=== PATIENT | female | born 1980 | race Caucasian/White ===

== ENCOUNTER 2019-11-29 07:29 | Outpatient (CLI) | payer SELFPAY ==
--- NOTE | 2019-11-29 07:15 | USCV_ITS ---
Lise Sharma Age: 39 Gender: F : 1980 Exam Date: 11/29/2019 07:53 Ordering Phys: Barney Rene Technologist: Krista Phelps Exam Location: [facility] – [place] Indication: PALPITATIONS BP: 118 / 57 HR: 72 Rhythm: Sinus Technical Quality: Adequate MEASUREMENTS (Male / Female) Normal Values 2D ECHO LV Diastolic Diameter PLAX 3.8 cm 4.2 - 5.9 / 3.9 - 5.3 cm LV Systolic Diameter PLAX 1.9 cm IVS Diastolic Thickness 1.3 cm 0.6 - 1.0 / 0.6 - 0.9 cm IVS Systolic Thickness 1.1 cm LVPW Diastolic Thickness 1.8 cm 0.6 - 1.0 / 0.6 - 0.9 cm LVPW Systolic Thickness 1.7 cm LVOT Diameter 2.0 cm LV Ejection Fraction 2D Teich 81.7 % LV Ejection Fraction MOD 2C 59.9 % LV Ejection Fraction 2C AL 60.3 % LA Diameter 3.9 cm LA Width 3.2 cm LA Height 4.0 cm RA Width 3.0 cm RA Height 3.6 cm Aorta at Sinotubular Diameter 2.3 cm M-MODE LV Diastolic Diameter MM 4.6 cm 4.2 - 5.9 / 3.9 - 5.3 cm LV Systolic Diameter MM 3.0 cm LV Ejection Fraction MM Teich 64.5 % IVS Diastolic Thickness MM 0.9 cm 0.6 - 1.0 / 0.6 - 0.9 cm IVS Systolic Thickness MM 1.0 cm LVPW Diastolic Thickness MM 1.0 cm 0.6 - 1.0 / 0.6 - 0.9 cm LVPW Systolic Thickness MM 1.7 cm Aortic Annulus Diameter 3.0 cm LA Ao Ratio MM 1.3 MV E Point Septal Separation 0.5 cm DOPPLER AV Peak Velocity 137.0 cm/s LVOT Peak Velocity 93.0 cm/s AV Area Cont Eq vti 2.3 cm squared AV Area Cont Eq pk 2.2 cm squared MV Area PHT 3.1 cm squared Mitral E to A Ratio 1.5 MV E' Velocity 17.0 cm/s Mitral E to MV E' Ratio 4.4 Mitral E to LV E' Lateral Ratio 4.8 Mitral E to LV E' Septal Ratio 4.2 TR Peak Velocity 220.0 cm/s TR Peak Gradient 19.4 mmHg TV Peak E Velocity 70.0 cm/s Right Atrial Pressure 3.0 mmHg Pulmonary Artery Systolic Pressu 22.4 mmHg PV Peak Velocity 69.0 cm/s RV Acceleration Time 0.2 s RV Ejection Time 0.4 s RV AcT/ET 0.5 FINDINGS Left Ventricle Normal left ventricular cavity size. Normal left ventricular systolic function. Left ventricular ejection fraction is estimated at 60 %. Although no diagnostic regional wall motion abnormality could be identified, this possibility cannot be completely excluded based on this study. Normal diastolic function. Right Ventricle Normal right ventricular size and systolic function, RVSP 22.4 mmHg. Right Atrium Normal right atrial size. Left Atrium Left atrium not well visualized. Probably normal left atrial size. Mitral Valve Mitral valve not well visualized. No significant mitral valve regurgitation. Aortic Valve Aortic valve not well visualized. Probably trileaflet aortic valve. No aortic valve stenosis. No aortic valve regurgitation. Tricuspid Valve Tricuspid valve not well visualized. Pulmonic Valve Pulmonic valve not well visualized. Pericardium No pericardial effusion. Inferior vena cava not well visualized. Aorta Normal-sized aortic root. CONCLUSIONS 1. This is a technically difficult study. 2. Normal left ventricle size and systolic function. Left ventricular ejection fraction is estimated at 60 %. Although no diagnostic regional wall motion abnormality could be identified, this possibility cannot be completely excluded based on this study. Normal diastolic function. 3. Normal pulmonary artery pressure. 4. No prior similar studies to compare. Gabriela Chambers MD (Electronically Signed) Final Date: 29 November 2019 13:40 S
== END 2019-11-29 07:30 | disposition home or self-care (01) ==
LOC: US 07:31
PROVIDERS: PCP Nurse Practitioner; Visit Provider Nurse Practitioner
DX: R00.2 Palpitations (principal)
CPT/HCPCS: 93306

== ENCOUNTER → 2022-01-12 15:56 | Outpatient (BNVA) | payer SELFPAY | PROVIDERS: PCP Nurse Practitioner; Visit Provider Nurse Practitioner | DX: E03.8 Other specified hypothyroidism (principal); Z33.1 Pregnant state, incidental; N91.2 Amenorrhea, unspecified | CPT/HCPCS: 81025 ==

== ENCOUNTER → 2022-02-05 10:16 | Outpatient (BNVA) | payer SELFPAY | PROVIDERS: PCP Nurse Practitioner; Visit Provider Nurse Practitioner | DX: E03.8 Other specified hypothyroidism (principal); J45.20 Mild intermittent asthma, uncomplicated; Z34.90 Encounter for supervision of normal pregnancy, unspecified, unspecified trimester | CPT/HCPCS: 81000 ==

== ENCOUNTER → 2022-09-21 16:49 | Outpatient (BNVA) | payer BC, SELFPAY | PROVIDERS: PCP Nurse Practitioner; Visit Provider Nurse Practitioner | DX: R50.9 Fever, unspecified (principal) | CPT/HCPCS: 85025 ==

== ENCOUNTER → 2022-12-02 09:26 | Outpatient (BNVA) | payer BC, SELFPAY | PROVIDERS: PCP Nurse Practitioner; Visit Provider Nurse Practitioner | DX: E03.8 Other specified hypothyroidism (principal); R00.2 Palpitations; J45.20 Mild intermittent asthma, uncomplicated; I10 Essential (primary) hypertension; E66.01 Morbid (severe) obesity due to excess calories | CPT/HCPCS: 80053; 84443; 85025 ==